=== PATIENT | female | born 1980 | race Caucasian/White ===

== ENCOUNTER 2023-06-23 11:26 | Day surgery (SDC) | payer OTHER ==
[~2023-06-23] VITALS: Ht 149.9 cm; Wt 77.8 kg
[~2023-06-23 11:26] MED LIST: LR 1,000 ML IV SCH; Ondansetron 4 MG/2 ML VIAL IV PRN
[2023-06-23 11:41] VITALS: BP 105/75; PULSE 73; TEMP 97.2
[2023-06-23] MEDS ORDERED: ZOLOFT 50MG50 MG PO (11:41)
[2023-06-23] MEDS ORDERED: ADVIL200 MG PO (11:41)
--- NOTE | 2023-06-23 11:43 | NUR ---
Pt arrived with , escorted to preop bay 8, VSS, heart and lung WNL upon ascultation; reviewed history/meds/pharm/allergies; pt reports bowels are light yellow in color and able to see the bottom of the bowl; to place IV and await procedure.
[2023-06-23] MEDS ORDERED: Lidocaine PF 2% (20 MG/ML) 5 ML VIAL ONE (13:13)
[2023-06-23] MEDS ORDERED: PEPCID 20MG TAB20 MG PO (13:55)
[2023-06-23] MEDS ORDERED: ANUSOL-HC SUPPO25 MG RC (13:56)
[2023-06-23 14:05] VITALS: BP 92/66; PULSE 65
[2023-06-23 14:15] VITALS: BP 93/68; PULSE 62
[2023-06-23 14:29] VITALS: BP 104/64; PULSE 65
--- NOTE | 2023-06-23 14:35 | NUR ---
1405 PATIENT RETURNS TO [facility] [place] [facility] VIA CART. PT AWAKE AND ALERT. RESPIRATIONS UNLABORED. AMBULATED TO RECLINER CHAIR WITH 2:1 SBA. PT DENIES NAUSEA OR ABDOMINAL PAIN. HOOKED UP TO MONITOR AND VS OBTAINED. CALL LIGHT AT SIDE AND PRESENT. 1415 PATIENT TOLERATING WATER WITHOUT NAUSEA. . 1425 DR. BERRY IN ROOM SPEAKING WITH PATIENT. 1430 D/C INSTRUCTIONS REVIEWED WITH PATIENT. PT VERBALIZED UNDERSTANDING AND A COPY OF INSTRUCTIONS PROVIDED IN D/C FOLDER. 1435 PATIENT DRESSES SELF. 1445 PATIENT DISCHARGED FROM UNIT VIA W/C TO A PERSONAL VEHICLE. PT LEFT HOSPITAL IN STABLE CONDITION.
== END 2023-06-23 14:45 | disposition home or self-care (01) ==
LOC: SDCO 11:26
DX: K29.30 Chronic superficial gastritis without bleeding (principal); K92.1 Melena; K64.0 First degree hemorrhoids; K60.1 Chronic anal fissure; R10.9 Unspecified abdominal pain; D12.5 Benign neoplasm of sigmoid colon; K62.89 Other specified diseases of anus and rectum; F17.210 Nicotine dependence, cigarettes, uncomplicated
CPT/HCPCS: J2704; J7120